=== PATIENT | female | born 1935 | race Caucasian/White ===

== ENCOUNTER 2016-06-25 11:30 | Emergency (ER) | payer MEDICARE, OTHER ==
[2016-06-25] MEDS ORDERED: PROCHLORPERAZINE 10 MG/2 ML VIAL ONE (12:05)
[2016-06-25] MEDS ORDERED: SODIUM CHLORIDE 0.9% 1,000 ML ONE (12:05)
[2016-06-25] MEDS ORDERED: DIPHENHYDRAMINE 50 MG/ML VIAL ONE ×2 (12:05→12:11)
[2016-06-25] MEDS ORDERED: KETOROLAC 30 MG/ML VIAL ONE (13:26)
[2016-06-25] MEDS ORDERED: ONDANSETRON 4 MG VIAL ONE (13:26)
== END 2016-06-25 14:47 | disposition home or self-care (01) ==
LOC: ER 11:30
CPT/HCPCS: 36415 ×2; 70450 ×2; 80053 ×2; 85025 ×2; 85610 ×2; 85730 ×2; 96361 ×2; 96374 ×2; 96375 ×2; 99284; J1885; J2405